=== PATIENT | female | born 1990 | race Two or more races ===

== ENCOUNTER 2019-05-10 11:23 | Inpatient (IN) | payer BC, MEDICAID ==
[2019-05-10 12:20] LABS: APPEARANCE,URINE SLIGHTLY-CLOUDY; BILIRUBIN,URINE NEGATIVE (NEGATIVE); COLOR,URINE YELLOW; GLUCOSE, URINE NEGATIVE (NEGATIVE); KETONES,URINE NEGATIVE (NEGATIVE); LEUKOCYTE ESTERASE,URINE TRACE (NEGATIVE); NITRITE,URINE NEGATIVE (NEGATIVE); PROTEIN,URINE NEGATIVE (NEGATIVE); UROBILINOGEN,URINE NEGATIVE mg/dL (<2.0)
[2019-05-10 12:44] LABS: URINE AMPHETAMINES SCREEN NEGATIVE; URINE BARBITURATES SCREEN NEGATIVE; URINE BENZODIAZEPINES SCREEN NEGATIVE; URINE COCAINE SCREEN NEGATIVE; URINE MARIJUANA (THC) SCREEN NEGATIVE; URINE METHADONE SCREEN NEGATIVE; URINE PHENCYCLIDINE SCREEN NEGATIVE
[2019-05-10] MEDS ORDERED: RINGERS SOLUTION,LACTATED 1,000 ML IV ONE (13:24)
[2019-05-10] MEDS ORDERED: RINGERS SOLUTION,LACTATED 1,000 ML IV PRN (13:24)
[2019-05-10] MEDS ORDERED: OXYTOCIN/NORMAL SALINE 20 UNIT/1,000 ML RTUINJ IV PRN (13:24)
[2019-05-10 14:15] LABS: ABSOLUTE BASOPHILS # (AUTO) 0.1 10^3/uL (0.0-0.2); ABSOLUTE EOSINOPHILS # (AUTO) 0.1 10^3/uL (0.0-0.6); ABSOLUTE LYMPHOCYTES (AUTO) 2.7 10^3/uL (0.5-4.7); ABSOLUTE MONOCYTES (AUTO) 0.5 10^3/uL (0.1-1.4); ABSOLUTE NEUT (AUTO) 8.5 10^3/uL (1.7-8.2); BASOPHILS % (AUTO) 0.7 % (0-2); EOSINOPHILS % (AUTO) 0.6 % (0-6); HEMATOCRIT 36.4 % (36.0-47.0); HEMOGLOBIN 11.7 g/dL (12.0-15.5); LYMPHOCYTES % (AUTO) 22.9 % (13-45); MEAN CORPUSCULAR HEMOGLOBIN 24.4 pg (27.0-33.4); MEAN CORPUSCULAR HGB CONC 32.1 g/dL (32.0-36.0); MEAN CORPUSCULAR VOLUME 76 fl (80-97); MONOCYTES % (AUTO) 4.2 % (3-13); PLATELET COUNT 263 10^3/uL (150-450); RED BLOOD COUNT 4.79 10^6/uL (3.72-5.28); RED CELL DISTRIBUTION WIDTH 19.8 % (11.5-14.0); SEGMENTED NEUTROPHILS % (AUTO) 71.6 % (42-78); TOTAL CELLS COUNTED % (AUTO) 100 %; WHITE BLOOD COUNT 11.8 10^3/uL (4.0-10.5)
--- NOTE | 2019-05-10 14:18 | Admission Physical ---
Datetime Report Generated by CPN: 05/10/2019 14:18 CURRENT ADMISSION Chief Complaint: Uterine Contractions; Other Chief Complaint Other: Oligohydramnios Indication for Induction: IUGR; Oligohydramnios Admit Impression : Term, Intrauterine ; No Active Labor; Intact Membranes; Induction of Labor Admit Plan: Admit to Unit; Initiate Labor Induction Protocol ALLERGIES Medication Allergies: No Medication Allergies: No Known Allergies (07/15/2015) Latex: No Latex Allergies OBSTETRICAL HISTORY EDC: 05/26/2019 00:00 : 3 Para: 2 Term: 1 : 1 Livin PHYSICAL EXAM General: Normal HEENT: Normal Neurologic: Normal Thyroid: Deferred Heart: Normal Lungs: Normal Breast: Deferred Back: Normal Abdomen: Normal Genitourinary Exam: Normal Extremities: Normal DTRs: Normal Pelvic Type: Adequate Vital Signs: Reviewed VAGINAL EXAM Dilatation: 2 Effacement: 60 Station: -2 Contraction Comments: w 2-5 MEMBRANES Membranes: Intact FETUS A EGA: 37.5 Monitoring: External US FHR- Baseline: 125 Variability: Moderate 6-25bpm Accelerations: 15X15 Decelerations: None FHR Category: Category I Presentation: Vertex Admit Comment: 28yo at 37+5ega presents from the office with oligohydramnios and EFW 10%. Actimprom negative. H/o E coli UTI during , hypothyroidism 50mcg. H/o delivery at 32wks then 38.6ega delivery. A1 GDM. SDP slightly greater than 2cm and other pockets minimal and 1cm - total CHEL 3.26cm. Reviewed with contractions may ne in early labor. suspect EFW is actually constitutionaly. However with CHEL low and decreased by more than half from previous weeks would recommend delivery. Reviewed recommendations and reviewed pitocin. Pt verbalized understanding. Admit to labor and delivery and anticipate . INFORMED CONSENT Informed Consent Obtained: Vaginal Delivery; Induction of Labor; Risks, Benefits and Alternatives Discussed Signature: with User ID: [email or web address]
[2019-05-10] MEDS ORDERED: MISOPROSTOL 0.2 MG TABLET ONE (14:23)
[2019-05-10] MEDS ORDERED: OXYTOCIN 10 UNIT/ML VIAL ONE (14:23)
[2019-05-10] MEDS ORDERED: LIDOCAINE 1% INJ-PF (10 MG/ML) 30 ML SDV ONE (14:24)
[2019-05-10] MEDS ORDERED: OXYTOCIN/NORMAL SALINE 20 UNIT/1,000 ML RTUINJ ONE (14:24)
[2019-05-10] MEDS ORDERED: NALBUPHINE HCL INJ 10 MG/1 ML AMPULE INJ ONE (23:10)
[2019-05-10] MEDS ORDERED: NALBUPHINE HCL INJ 10 MG/1 ML AMPULE ONE (23:21)
[2019-05-11] MEDS ORDERED: FENTANYL CITRATE INJ/PF 100 MCG/2 ML AMPUL ONE (01:01)
[2019-05-11] MEDS ORDERED: BENZOCAINE/MENTHOL AEROSOL SPRAY 56 ML TOP PRN (01:48)
[2019-05-11] MEDS ORDERED: GLYCERIN/WITCH HAZEL LEAF 1 EACH MED..WIPE TP PRN (01:48)
[2019-05-11] MEDS ORDERED: OXYTOCIN/NORMAL SALINE 20 UNIT/1,000 ML RTUINJ IV PRN (01:48)
[2019-05-11] MEDS ORDERED: PROMETHAZINE HCL 25 MG SUPP.RECT PR PRN (01:48)
[2019-05-11] MEDS ORDERED: DIPH/PERTUSS(ACELL)/TETANUS VAC/PF 0.5 ML SYR (>=10YO) IM PRN (01:48)
[2019-05-11] MEDS ORDERED: MEASLES,MUMPS&RUBELLA VACC/PF 0.5 ML VIAL SUBCUT PRN (01:48)
[2019-05-11] MEDS ORDERED: NA PHOS,M-B/NA PHOS,DI-BA (ADULT) 133 ML ENEMA PR PRN (01:48)
[2019-05-11] MEDS ORDERED: PSEUDOEPHEDRINE HCL 30 MG TABLET PO PRN (01:48)
[2019-05-11] MEDS ORDERED: DIPHENHYDRAMINE HCL 25 MG CAPSULE PO PRN (01:48)
[2019-05-11] MEDS ORDERED: DIBUCAINE 1% OINTMENT 56 GM TP PRN (01:48)
[2019-05-11] MEDS ORDERED: PROMETHAZINE HCL 25 MG TABLET PO PRN (01:48)
[2019-05-11] MEDS ORDERED: MAGNESIUM HYDROXIDE SUSP 30 ML UDCUP PO PRN (01:48)
[2019-05-11] MEDS ORDERED: ACETAMINOPHEN WITH CODEINE #3 TABLET PO PRN (01:48)
[2019-05-11] MEDS ORDERED: PROMETHAZINE HCL INJ 25 MG/1 ML VIAL IV PRN (01:48)
[2019-05-11] MEDS ORDERED: ACETAMINOPHEN 325 MG TABLET PO PRN (01:48)
[2019-05-11] MEDS ORDERED: ZOLPIDEM TARTRATE 5 MG TABLET PO PRN (01:48)
[2019-05-11] MEDS ORDERED: IBUPROFEN 800 MG TABLET ONE (02:23)
[2019-05-11] MEDS: IBUPROFEN 800 MG TABLET PO SCH ×3 (06:17→22:23)
[2019-05-11] MEDS: ACETAMINOPHEN WITH CODEINE #3 TABLET PO PRN ×2 (06:19→18:40)
[2019-05-11] MEDS: PRENATAL VITAMIN W DHA CAPSULE PO SCH (09:10)
[2019-05-11] MEDS: FERROUS SULFATE 325 MG TABLET PO SCH ×2 (09:11→18:41)
[2019-05-11] MEDS: SENNOSIDES/DOCUSATE 8.6-50 MG 1 EACH TABLET PO SCH (09:11)
[2019-05-11] MEDS: DOCUSATE SODIUM 100 MG CAPSULE PO SCH ×2 (09:11→18:41)
[2019-05-11] MEDS: FAMOTIDINE 20 MG TABLET PO SCH ×2 (09:11→22:22)
--- NOTE | 2019-05-11 10:44 | PDOC PROGRESS REPORT ---
Subjective-OB Progress Note for:: 05/11/19 Subjective: Doing well, no c/o, voiding, ambulating Physical Exam (OB) Vital Signs: Temp Pulse Resp BP Pulse Ox 97.6 F 81 22 H 111/70 99 05/11/19 07:53 05/11/19 07:53 05/11/19 07:53 05/11/19 07:53 05/11/19 07:53 Intake & Output 05/10/19 05/11/19 05/12/19 06:59 06:59 06:59 Weight 61.8 kg - PIH/Pre-Eclampsia Clonus: Negative Headache: Absent Epigastric Pain: No Visual Changes: No - Lochia Lochia Amount: Scant < 10 ml Lochia Color: Rubra/Red - Abdomen Description: Tender Hernia Present: No Fundal Description: Firm Fundal Height: u/u - u/2 Objective-Diagnostic Laboratory: 05/10/19 14:00 05/10/19 05/10/19 05/10/19 11:35 14:00 14:00 WBC 11.8 H RBC 4.79 Hgb 11.7 L Hct 36.4 MCV 76 L MCH 24.4 L MCHC 32.1 RDW 19.8 H Plt Count 263 Seg Neutrophils % 71.6 Lymphocytes % 22.9 Monocytes % 4.2 Eosinophils % 0.6 Basophils % 0.7 Absolute Neutrophils 8.5 H Absolute Lymphocytes 2.7 Absolute Monocytes 0.5 Absolute Eosinophils 0.1 Absolute Basophils 0.1 Urine Color YELLOW Urine Appearance SLIGHTLY-CLOUDY Urine pH 7.0 Ur Specific [place] 1.010 Urine Protein NEGATIVE Urine Glucose (UA) NEGATIVE Urine Ketones NEGATIVE Urine Blood NEGATIVE Urine Nitrite NEGATIVE Ur Leukocyte Esterase TRACE H Blood Type O POSITIVE Antibody Screen NEGATIVE Assessment and Plan(PN) - Assessment and Plan (1) Oligohydramnios Qualifiers: Fetus number: single or unspecified fetus Is this a current diagnosis for this admission?: Yes (2) Vaginal delivery Is this a current diagnosis for this admission?: Yes (3) Hypothyroidism Qualifiers: Hypothyroidism type: unspecified Qualified Code(s): E03.9 - Hypothyroidism, unspecified Is this a current diagnosis for this admission?: Yes - Time Spent with Patient Time with patient: Less than 15 minutes Medications reviewed and adjusted accordingly: Yes - Disposition Anticipated Discharge: Home Within: within 24 hours
--- NOTE | 2019-05-11 11:06 | PDOC PROGRESS REPORT ---
Subjective-OB Progress Note for:: 05/11/19 Subjective: Doing well, kids and hsb at BS, voiding, Physical Exam (OB) Vital Signs: Temp Pulse Resp BP Pulse Ox 97.6 F 81 22 H 111/70 99 05/11/19 07:53 05/11/19 07:53 05/11/19 07:53 05/11/19 07:53 05/11/19 07:53 Intake & Output 05/10/19 05/11/19 05/12/19 06:59 06:59 06:59 Weight 61.8 kg - PIH/Pre-Eclampsia Clonus: Negative Headache: Absent Epigastric Pain: No Visual Changes: No - Lochia Lochia Amount: Scant < 10 ml Lochia Color: Rubra/Red - Abdomen Description: Tender Hernia Present: No Fundal Description: Firm Fundal Height: u/u - u/2 Objective-Diagnostic Laboratory: 05/10/19 14:00 05/10/19 05/10/19 05/10/19 11:35 14:00 14:00 WBC 11.8 H RBC 4.79 Hgb 11.7 L Hct 36.4 MCV 76 L MCH 24.4 L MCHC 32.1 RDW 19.8 H Plt Count 263 Seg Neutrophils % 71.6 Lymphocytes % 22.9 Monocytes % 4.2 Eosinophils % 0.6 Basophils % 0.7 Absolute Neutrophils 8.5 H Absolute Lymphocytes 2.7 Absolute Monocytes 0.5 Absolute Eosinophils 0.1 Absolute Basophils 0.1 Urine Color YELLOW Urine Appearance SLIGHTLY-CLOUDY Urine pH 7.0 Ur Specific [place] 1.010 Urine Protein NEGATIVE Urine Glucose (UA) NEGATIVE Urine Ketones NEGATIVE Urine Blood NEGATIVE Urine Nitrite NEGATIVE Ur Leukocyte Esterase TRACE H Blood Type O POSITIVE Antibody Screen NEGATIVE Assessment and Plan(PN) - Assessment and Plan (1) Oligohydramnios Qualifiers: Fetus number: single or unspecified fetus Is this a current diagnosis for this admission?: Yes (2) Vaginal delivery Is this a current diagnosis for this admission?: Yes (3) Hypothyroidism Qualifiers: Hypothyroidism type: unspecified Qualified Code(s): E03.9 - Hypothyroidism, unspecified Is this a current diagnosis for this admission?: Yes - Time Spent with Patient Medications reviewed and adjusted accordingly: Yes - Disposition Anticipated Discharge: Home Within: within 24 hours
[2019-05-11] MEDS ORDERED: LEVOTHYROXINE SODIUM 0.05 MG TABLET PO ONE (12:00)
--- NOTE | 2019-05-11 16:17 | Delivery Summary ---
Del Sum A-C Datetime Report Generated by CPN: 05/11/2019 16:16 DELIVERY PERSONNEL DELIVERY PERSONNEL: [id number] Delivery Doctor:: Sierra Yadav MD Labor and Delivery Nurse:: Torie Blackwood RN Nursery Nurse:: Nae Abreu RN Resistor Tester/DOOR FRAME BUILDER: Purnima Green, ST MATERNAL INFORMATION Delivery Anesthesia: None Medications After Delivery: Pitocin Drip 20 Units/1000ml NSS Meds After Delivery Comment: 75mcg fentanyl IV Estimated Blood Loss (ml): 200 Maternal Complications: None Provider Comments: VMI delivered in JAN presentation after modified ritgens due to FHR decelerations to 80's. Reviewed if unable to deliver soon then would need VAVD. However, patient able to deliver with 3 maternal efforts with modified ritgens. No nuchal cord. Shoulders and body delivered without difficulty. cord doubly clamped and cut and infant to maternal abdomen. Placenta delivered intact spontaneously although delayed due to fundal adherance. No evidence of retained products on exam. 1st degree perineal laceration repaired with good hemostasis. FF at U. Mother and baby stable upon provider leaving the room. LABOR SUMMARY EDC: 05/26/2019 00:00 No. Babies in Womb: 1 Attempted: No Labor Anesthesia: None LABOR INFORMATION Reason for Induction: Oligohydramnios Oxytocin: Induction Group B Beta Strep: neg Steroids Given: None Reason Steroids Not Administered: Not Applicable MEMBRANES Membranes Rupture Method: Spontaneous Rupture of Membranes: 05/10/2019 19:05 Length of Rupture (hr): 5.85 Amniotic Fluid Color: Clear Amniotic Fluid Amount: Large Amniotic Fluid Odor: Normal STAGES OF LABOR Stage 3 hr: 0 Stage 3 min: 18 VAGINAL DELIVERY Episiotomy: None Laceration #1: Perineal Laceration Extension #1: First Degree Laceration Repair: Yes Laceration Repair Note: 1st degree perineal laceration repaired in usual fashion Sponge Count Correct: Yes Sharps Count Correct: Yes BABY A INFORMATION Delivery Date/Time: 05/11/2019 00:56 Method of Delivery: Vaginal Born in Route : No : N/A Forceps: N/A Vacuum Extraction: N/A Shoulder Dystocia : No PRESENTATION/POSITION BABY A Presentation: Cephalic Cephalic Presentation: Vertex PLACENTA INFORMATION BABY A Placenta Delivery Time : 05/11/2019 01:14 Placenta Method of Delivery: Spontaneous SCORES BABY A Heart Rate 1 min: >100 bpm Resp Effort 1 min: Good Cry Reflex Irritability 1 min: Cough or Sneeze or Pulls Away Muscle Tone 1 min: Active Motion Color 1 min: Blue/Pale SCORE 1 MIN: 8 Heart Rate 5 min: >100 bpm Resp Effort 5 min: Good Cry Reflex Irritability 5 min: Cough or Sneeze or Pulls Away Muscle Tone 5 min: Active Motion Color 5 min: Body Linda, Extremities Blue SCORE 5 MIN: 9 INFORMATION BABY A Gestational Age at Delivery: 37.6 Gestational Status: Early Term- 37- 38.6 Weeks Outcome : Liveborn Infant Condition : Stable Sex: Female IDENTIFICATION BABY A ID Band Number: [id number] Mother's Name Verified: Yes RN Verifying : Conradsoledadlawrence UVALDO/ E. Jilek RN WEIGHT/LENGTH BABY A Birthweight (gm): 2190 Weight (lb): 4 Infant Weight (oz): 13 Length (in): 18.50 Length (cm): 46.99 CORD INFORMATION BABY A No. Cord Vessels: 3 Cord Blood Taken: Yes-For Eval (Mom's Blood Type - or O+) ASSESSMENT BABY A Infant Complications: None Physical Findings at Delivery: Within Normal Limits Infant Respirations: Appears Normal Skin to Skin: Yes Integrated Logistics Operations Manager/ALS Called : No Transferred To: Remains with Mother SIGNATURES Signature: with User ID: [email or web address]
[2019-05-12] MEDS: IBUPROFEN 800 MG TABLET PO SCH ×2 (05:27→14:01)
[2019-05-12] MEDS ORDERED: LEVOTHYROXINE SODIUM 0.05 MG TABLET PO SCH (06:00)
[2019-05-12 07:07] LABS: HEMATOCRIT 32.3 % (36.0-47.0); HEMOGLOBIN 10.4 g/dL (12.0-15.5); MEAN CORPUSCULAR HEMOGLOBIN 24.6 pg (27.0-33.4); MEAN CORPUSCULAR HGB CONC 32.2 g/dL (32.0-36.0); MEAN CORPUSCULAR VOLUME 77 fl (80-97); PLATELET COUNT 233 10^3/uL (150-450); RED BLOOD COUNT 4.23 10^6/uL (3.72-5.28); RED CELL DISTRIBUTION WIDTH 19.9 % (11.5-14.0); WHITE BLOOD COUNT 13.2 10^3/uL (4.0-10.5)
--- NOTE | 2019-05-12 09:10 | PDOC DISCHARGE SUMMARY ---
Addendum entered and electronically signed by ALYSSA LAWS CNM 05/12/19 16:13: Assessment and Plan(PN) - Assessment and Plan (1) Normal course Is this a current diagnosis for this admission?: Yes (2) Oligohydramnios Qualifiers: Fetus number: single or unspecified fetus Is this a current diagnosis for this admission?: Yes (3) History of delivery Is this a current diagnosis for this admission?: Yes (4) Hypothyroidism Qualifiers: Hypothyroidism type: unspecified Qualified Code(s): E03.9 - Hypothyroidism, unspecified Is this a current diagnosis for this admission?: Yes (5) Is this a current diagnosis for this admission?: Yes (6) Vaginal delivery Is this a current diagnosis for this admission?: Yes - Time Spent with Patient Medications reviewed and adjusted accordingly: Yes - Disposition Anticipated Discharge: Home Within: Other - Home today, The nursery did end up letting baby go home today Addendum entered and electronically signed by ALYSSA LAWS CNM 05/12/19 10:15: Assessment and Plan(PN) - Assessment and Plan (1) Normal course Is this a current diagnosis for this admission?: Yes (2) Oligohydramnios Qualifiers: Fetus number: single or unspecified fetus Is this a current diagnosis for this admission?: Yes (3) History of delivery Is this a current diagnosis for this admission?: Yes (4) Hypothyroidism Qualifiers: Hypothyroidism type: unspecified Qualified Code(s): E03.9 - Hypothyroidism, unspecified Is this a current diagnosis for this admission?: Yes (5) Is this a current diagnosis for this admission?: Yes (6) Vaginal delivery Is this a current diagnosis for this admission?: Yes - Time Spent with Patient Medications reviewed and adjusted accordingly: Yes - Disposition Anticipated Discharge: Home Within: within 24 hours - baby is not able to go home today, so the discharge home has been canceled Original Note: Final Diagnosis Discharge Date: 05/12/19 - PP Day 1 and 11/23, pt desires to go home today. O+, Rubella Immune, . - Final Diagnosis (1) Normal course Is this a current diagnosis for this admission?: Yes (2) Oligohydramnios Is this a current diagnosis for this admission?: Yes (3) History of delivery Is this a current diagnosis for this admission?: Yes (4) Hypothyroidism Is this a current diagnosis for this admission?: Yes (5) Is this a current diagnosis for this admission?: Yes (6) Vaginal delivery Is this a current diagnosis for this admission?: Yes Discharge Data - Discharge Medication Prescriptions: Ibuprofen [Motrin 800 mg Tablet] 800 mg PO Q8 #60 tablet Home Medications: Levothyroxine Sodium [Synthroid 0.05 mg Tablet] 50 mcg PO DAILY 08/29/12 No.137/Iron/Folic Acd [ Vitamin Tablet] 1 tab PO DAILY 07/15/15 Ferrous Sulfate [Iron] 325 mg PO BID 05/10/19 Ibuprofen [Motrin 800 mg Tablet] 800 mg PO Q8 #60 tablet 05/12/19 Reason(s) for Admission: Onset of Labor Procedures: NST Intrapartum Procedure(s): Spontaneous Vaginal Delivery Complication(s): Laceration-Vaginal Laceration-Degree: 1st - Diagnosis Test Laboratory: Temp Pulse Resp BP Pulse Ox 97.7 F 66 18 121/69 100 05/11/19 20:36 05/11/19 20:36 05/11/19 20:36 05/11/19 20:36 05/11/19 20:36 05/10/19 05/10/19 05/12/19 11:35 14:00 06:18 RBC 4.79 4.23 Hgb 11.7 L 10.4 L Hct 36.4 32.3 L Urine Opiates Screen NEGATIVE - Discharge information/Instructions Discharge Activity: Activity As Tolerated, No Lifting Over 10 Pounds, Pelvic Rest Discharge Diet: As Tolerated, Regular Disposition: HOME, SELF-CARE Follow up with: [facility] in: 4, Weeks
[2019-05-12] MEDS: SENNOSIDES/DOCUSATE 8.6-50 MG 1 EACH TABLET PO SCH (10:58)
[2019-05-12] MEDS: DOCUSATE SODIUM 100 MG CAPSULE PO SCH (10:58)
[2019-05-12] MEDS: FAMOTIDINE 20 MG TABLET PO SCH (10:58)
[2019-05-12] MEDS: PRENATAL VITAMIN W DHA CAPSULE PO SCH (10:58)
[2019-05-12] MEDS: FERROUS SULFATE 325 MG TABLET PO SCH (10:59)
[2019-05-12] MEDS: ACETAMINOPHEN WITH CODEINE #3 TABLET PO PRN (12:19)
[2019-05-12 14:51] VITALS: BP 111/70
== END 2019-05-12 17:40 | disposition home or self-care (01) | DRG 806 ==
LOC: LC 11:23 → LR 13:07 → 2S 05-11 03:24
PROVIDERS: ADMIT Student in an Organized Health Care Education/Training Program; ATTEND Student in an Organized Health Care Education/Training Program
PROC: 10E0XZZ Delivery of Products of Conception, External Approach (ICD-10-PCS; principal; 2019-05-11)
PROC: 0HQ9XZZ Repair Perineum Skin, External Approach (ICD-10-PCS; 2019-05-11)
DX: O36.5930 Maternal care for other known or suspected poor fetal growth, third trimester, not applicable or unspecified (principal); O41.03X0 Oligohydramnios, third trimester, not applicable or unspecified; Z37.0 Single live birth; O99.284 Endocrine, nutritional and metabolic diseases complicating childbirth; E03.9 Hypothyroidism, unspecified; O76 Abnormality in fetal heart rate and rhythm complicating labor and delivery; O70.0 First degree perineal laceration during delivery; Z3A.37 37 weeks gestation of pregnancy
CPT/HCPCS: 36415; 80307; 81005; 84112; 85025; 85027; 86592; 86850; 86900; 86901; J2300; J2590; J3010; J3490